=== PATIENT | female | born 1985 | race American Indian/Alaskan Native ===

== ENCOUNTER 2017-12-12 19:53 | Inpatient (IN) | payer OTHER ==
--- NOTE | 2017-12-12 22:36 | History and Physical Report ---
History of Present Illness Date of examination: 12/12/17 Date of admission: 12/12/17 19:53 Chief complaint: Induction of labor History of present illness: Pt is a 32yo BF EDC 12/01/17; EGA 41 4/7 weeks presents for induction of labor due to post dates. She received late care at [facility] since 29 weeks and course has been unremarkable except for Hgb . records are available and GBS is Positive. Past History Past Medical History: hematologic disorders (Hemoglobin ) Past Surgical History: D&C Social history: no significant social history, - Obstetrical History Expected Date of Delivery: 12/01/17 Actual Gestation: 41 Week(s) 4 Day(s) : 7 Medications and Allergies Allergies Allergy/AdvReac Type Severity Reaction Status Date / Time No Known Allergies Allergy Unverified 12/12/17 21:26 Review of Systems All systems: negative - Vital Signs Vital signs: Vital Signs Pulse BP Pulse Ox 83 158/92 97 12/12/17 20:45 12/12/17 20:45 12/12/17 20:45 Temp Pulse Resp BP Pulse Ox 98.1 F 73 16 142/91 98 12/12/17 21:19 12/12/17 22:35 12/12/17 21:19 12/12/17 21:19 12/12/17 22:35 - Physical Exam Breasts: Positive: deferred Cardiovascular: Regular rate Lungs: Positive: Clear to auscultation Abdomen: Positive: normal appearance, soft Genitourinary (Female): Positive: normal external genitalia Uterus: Positive: enlarged Extremities: Positive: edema - Obstetrical FHR: category 1 Uterine Contraction Monitor Mode: External Cervical Dilatation: 1 (per nurse) Cervical Effacement Percentage: 60 (per nurse) station: -2 Uterine Contraction Pattern: Irregular Uterine Tone Measurement Phase: Contraction Uterine Contraction Intensity: Mild Results All other labs normal. Assessment and Plan - Patient Problems (1) 41 weeks gestation of Onset Date: 12/12/17 Current Visit: Yes Status: Acute Plan to address problem: A: IUP @ 41 4/7 weeks GBS Positive P: Admit to L&D for cervidil/pitocin induction of labor IV Ampicillin
[2017-12-12] MEDS ORDERED: BRETHINE SUB-Q PRN (22:43)
[2017-12-12] MEDS ORDERED: XYLOCAINE 2% INFILTRATI ONE (22:43)
[2017-12-12] MEDS ORDERED: SUBLIMAZE IV PRN (22:43)
[2017-12-12] MEDS ORDERED: ZOFRAN IV PRN (22:43)
[2017-12-12] MEDS ORDERED: CERVIDIL VG ONE (22:43)
[2017-12-12] MEDS ORDERED: BRETHINE IVP PRN (22:43)
[2017-12-12] MEDS ORDERED: STADOL IV PRN (22:43)
[2017-12-12] MEDS ORDERED: MINERAL OIL PO PRN (22:43)
[2017-12-12] MEDS ORDERED: ALUM-MAG HYDROX-SIMETH 200-200-20MG/5ML PO PRN (22:56)
[2017-12-12] MEDS ORDERED: AMBIEN PO PRN (22:57)
[2017-12-12] MEDS ORDERED: PITOCin/NS 30 UNIT/500ML 30 UNITS/500 ML BAG IV SCH ×2 (23:00)
[2017-12-12] MEDS ORDERED: PITOCin/NS 20 UNIT/1000ML DRIP 20 UNITS/1,000 ML BAG IV SCH (23:00)
[2017-12-12] MEDS ORDERED: POLYCILLIN/NS 2 GM/100 ML 2 GM/100 ML BAG IV ONE (23:10)
[2017-12-12 23:19] LABS: Hematocrit 34.4 % (30.3-42.9); Hemoglobin 11.5 gm/dl (10.1-14.3); Mean Corpuscular HGB Conc 34 % (30-34); Mean Corpuscular Hemoglobin 30 pg (28-32); Mean Corpuscular Volume 91 fl (79-97); Platelet Count 181 K/mm3 (140-440); Red Blood Count 3.79 M/mm3 (3.65-5.03); Red Cell Distribution Width 14.8 % (13.2-15.2)
[2017-12-13] MEDS: LACTATED RINGERS 1,000 ML IV SCH ×2 (00:09→13:23)
[2017-12-13] MEDS: AMPICILLIN/NS 1 GM/50 ML 1 GM/50 ML BAG IV SCH ×2 (11:35→15:44)
[2017-12-13] MEDS ORDERED: XYLOCAINE MPF 2% ONE (20:03)
--- NOTE | 2017-12-13 20:28 | Procedure Note ---
OB Delivery Note - Delivery Date of Delivery: 12/13/17 Surgeon: TAHIR TRONCOSO Estimated blood loss: 300cc - Vaginal Delivery presentation: vertex Delivery position: OA Delivery induction: cervidil Delivery augmentation: rupture of membranes, pitocin Delivery monitor: external FHT, external uterine Route of delivery: Delivery placenta: spontaneous Delivery cord: 3 umbilical vessels Episiotomy: none Delivery laceration: 2nd degree (perineal) Delivery repair: vicryl Anesthesia: local Delivery comments: Infant delivered OA and placed on Mom's chest for [id number] bonding and delayed cord clamping - Infant A at 1 minute: 7 at 5 minutes: 9 Gender: Female (3052gms)
[2017-12-13] MEDS ORDERED: TUCKS PAD TP PRN (20:30)
[2017-12-13] MEDS ORDERED: PHENERGAN PR PRN (20:30)
[2017-12-13] MEDS ORDERED: NORCO 5/325 PO PRN (20:30)
[2017-12-13] MEDS ORDERED: BENADRYL PO PRN (20:30)
[2017-12-13] MEDS ORDERED: LANSINOH TP PRN (20:30)
[2017-12-13] MEDS ORDERED: TYLENOL PO PRN (20:30)
[2017-12-13] MEDS ORDERED: DULCOLAX PR PRN (20:30)
[2017-12-13] MEDS ORDERED: MILK OF MAGNESIA PO PRN (20:30)
[2017-12-13] MEDS ORDERED: PHENERGAN PO PRN (20:30)
[2017-12-13] MEDS ORDERED: ZOFRAN IV PRN (20:30)
[2017-12-13] MEDS ORDERED: SODIUM CHLORIDE FLUSH SYRINGE 10 ML IV NR (21:00)
[2017-12-13] MEDS ORDERED: PITOCin/NS 20 UNIT/1000ML DRIP 20 UNITS/1,000 ML BAG IV SCH (21:00)
[2017-12-13] MEDS: MOTRIN PO SCH (23:14)
[2017-12-13] MEDS: COLACE PO SCH (23:15)
[2017-12-13] MEDS: FEOSOL PO SCH (23:15)
[2017-12-13] MEDS ORDERED: PITOCin/NS 20 UNIT/1000ML DRIP 20,000 MILLIUNITS/1,000 ML BAG IV ONE (23:19)
[2017-12-14 02:06] LABS: Hematocrit 30.1 % (30.3-42.9); Hemoglobin 10.2 gm/dl (10.1-14.3)
[2017-12-14] MEDS: MOTRIN PO SCH ×3 (06:35→17:32)
--- NOTE | 2017-12-14 09:55 | Progress Note ---
Assessment and Plan - Patient Problems (1) 41 weeks gestation of Onset Date: 12/12/17 Current Visit: Yes Status: Resolved (2) (normal spontaneous vaginal delivery) Onset Date: 12/14/17 Current Visit: Yes Status: Resolved Plan to address problem: A: S/P - PPD #1 Doing well Asymptomatic anemia - stable P: May go home tomorrow. Subjective - Subjective Date of service: 12/14/17 Principal diagnosis: s/p - PPD #1 Interval history: Pt is feeling well, bleeding improved. Patient reports: appetite normal, voiding normally, pain well controlled, flatus , ambulating normally, no dizzy ambulation, no nauseated [place]: doing well, nursing well, bottle feeding Objective - Vital Signs Latest vital signs: Vital Signs Temp Pulse Resp BP BP Pulse Ox 12/14/17 08:49 97.4 F L 75 18 143/83 100 12/14/17 04:15 98.2 F 75 20 116/63 12/13/17 22:45 98.6 F 66 18 144/83 98 12/13/17 21:31 71 97 12/13/17 21:30 68 134/76 12/13/17 21:26 74 96 12/13/17 21:21 69 96 12/13/17 21:16 70 96 12/13/17 21:12 84 94 12/13/17 21:11 85 94 12/13/17 21:10 74 168/80 12/13/17 21:06 68 97 12/13/17 21:01 69 95 12/13/17 20:56 70 154/74 97 12/13/17 20:51 77 98 12/13/17 20:46 77 98 12/13/17 20:41 79 98 12/13/17 20:40 82 167/72 12/13/17 20:36 77 98 12/13/17 20:31 76 98 12/13/17 20:25 71 166/52 12/13/17 20:22 81 147/66 12/13/17 20:10 98.6 F 71 18 166/52 98 12/13/17 20:09 88 185/66 12/13/17 19:11 74 118/82 12/13/17 18:39 65 169/89 12/13/17 18:08 66 138/83 12/13/17 17:38 63 148/88 12/13/17 17:21 70 139/70 12/13/17 17:11 83 157/81 12/13/17 17:09 88 152/106 12/13/17 16:57 71 158/85 12/13/17 16:45 83 176/96 12/13/17 16:21 74 100 12/13/17 16:16 84 99 12/13/17 16:11 65 98 12/13/17 16:06 71 99 12/13/17 15:39 77 175/95 12/13/17 15:36 79 100 12/13/17 15:31 87 99 12/13/17 15:30 98.2 F 22 12/13/17 15:26 67 100 12/13/17 15:21 74 100 12/13/17 15:16 66 99 12/13/17 15:11 64 99 12/13/17 15:09 70 139/85 12/13/17 15:06 63 99 12/13/17 14:54 82 100 12/13/17 14:52 85 154/93 12/13/17 14:49 79 100 12/13/17 14:44 73 100 12/13/17 14:39 84 100 12/13/17 14:38 82 160/88 12/13/17 14:34 72 100 12/13/17 14:29 83 100 12/13/17 14:24 86 100 12/13/17 14:19 78 100 12/13/17 14:14 79 100 12/13/17 14:09 83 100 12/13/17 14:08 74 137/81 12/13/17 14:04 75 100 12/13/17 13:59 79 97 12/13/17 13:54 84 97 12/13/17 13:49 78 97 12/13/17 13:44 82 98 12/13/17 13:39 77 99 12/13/17 12:27 75 140/87 12/13/17 11:38 67 137/89 12/13/17 11:30 98.1 F 20 Intake and Output 12/13/17 12/14/17 12/14/17 22:59 06:59 14:59 Intake Total 240 Balance 240 Intake: Oral 240 Other: Total, Intake Amount 240 # Voids Void 1 Estimated Blood Loss 300 - Exam Breasts: Present: deferred Cardiovascular: Present: Regular rate Lungs: Present: Clear to auscultation Abdomen: Present: normal appearance Uterus: Present: normal, firm, fundal height below umbilicus Extremities: Present: normal - Labs Labs: Abnormal lab results 12/14/17 Range/Units 01:39 Hct 30.1 L (30.3-42.9) % Laboratory Tests 12/12/17 12/12/17 12/12/17 22:00 22:00 22:00 WBC 8.6 RBC 3.79 Hgb 11.5 Hct 34.4 MCV 91 MCH 30 MCHC 34 RDW 14.8 Plt Count 181 RPR Nonreactive Blood Type O POSITIVE Antibody Screen Negative 12/14/17 12/14/17 01:39 11:00 WBC RBC Hgb 10.2 9.6 L Hct 30.1 L 28.0 L MCV MCH MCHC RDW Plt Count RPR Blood Type Antibody Screen
[2017-12-14] MEDS ORDERED: PRENATAL VITAMIN PO SCH (10:00)
[2017-12-14 11:15] LABS: Hemoglobin 9.6 gm/dl (10.1-14.3)
--- NOTE | 2017-12-14 11:38 | Discharge Summary ---
Providers - Providers Date of Admission: 12/12/17 19:53 Date of discharge: 12/15/17 Attending physician: TAHIR TRONCOSO Primary care physician: TAHIR TRONCOSO Hospitalization Reason for admission: induction of labor, IUP at term Delivery: Episiotomy: none Laceration: 2nd degree Other procedures: none complications: none Discharge diagnosis: IUP at term delivered baby: female Hospital course: Unremarkable. Condition at discharge: Good Disposition: DC-01 TO HOME OR SELFCARE - Discharge Diagnoses (1) 41 weeks gestation of Status: Resolved (2) (normal spontaneous vaginal delivery) Status: Resolved Plan - Discharge Medications Prescriptions: Ferrous Sulfate [Feosol 325 MG tab] 325 mg PO BID #60 tablet Ibuprofen [Motrin 600 MG tab] 600 mg PO Q6H #30 tablet Vit-Fe Fumar-FA [ Vitamin] 1 each PO QDAY #30 tablet - Provider Discharge Summary Activity: routine, no sex for 6 weeks, no heavy lifting 4 weeks, no strenuous exercise Diet: routine Instructions: routine Additional instructions: [] Smoking cessation referral if applicable(refer to patient education folder for contact #) [] Refer to [facility]'s [facility] Center Booklet Call your doctor immediately for: * Fever > 100.5 * Heavy vaginal bleeding ( >1 pad per hour) * Severe persistent headache * Shortness of breath * Reddened, hot, painful area to leg or breast * Drainage or odor from incision. * Keep incision clean and dry at all times and follow doctor's instructions regarding bathing/showering - Follow up plan Follow up: TAHIR TRONCOSO MD [Primary Care Provider] - 6 Weeks KRISTEN VIVEROS NP [Referring] - 6 Weeks
[2017-12-14] MEDS: COLACE PO SCH ×2 (12:56→21:36)
[2017-12-14] MEDS: FEOSOL PO SCH ×2 (12:56→21:37)
[2017-12-14] MEDS ORDERED: M-M-R II VACCINE SUB-Q ONE (20:30)
[2017-12-14] MEDS ORDERED: BOOSTRIX IM ONE (20:30)
[2017-12-15] MEDS: MOTRIN PO SCH ×2 (05:12→05:17)
[2017-12-15 11:10] VITALS: BP 130/79
== END 2017-12-15 11:07 | disposition home or self-care (01) | DRG 775 ==
LOC: LD 19:53 → OB 12-13 22:32
PROVIDERS: ADMIT Obstetrics & Gynecology; ATTEND Obstetrics & Gynecology
PROC: 3E0P7VZ Introduction of Hormone into Female Reproductive, Via Natural or Artificial Opening (ICD-10-PCS; 2017-12-12)
PROC: 10E0XZZ Delivery of Products of Conception, External Approach (ICD-10-PCS; principal; 2017-12-13)
PROC: 0KQM0ZZ Repair Perineum Muscle, Open Approach (ICD-10-PCS; 2017-12-13)
PROC: 3E0234Z Introduction of Serum, Toxoid and Vaccine into Muscle, Percutaneous Approach (ICD-10-PCS; 2017-12-14)
DX: O48.0 Post-term pregnancy (principal); Z23 Encounter for immunization; Z3A.41 41 weeks gestation of pregnancy; Z37.0 Single live birth; O99.824 Streptococcus B carrier state complicating childbirth; O70.1 Second degree perineal laceration during delivery; O99.02 Anemia complicating childbirth; D64.9 Anemia, unspecified
CPT/HCPCS: 36415; 59200; 85014; 85018; 85027; 86592; 86850; 86900; 86901; J0290; J0595; J2590; J7120